=== PATIENT | male | born 1980 | race Two or more races ===

== ENCOUNTER 2022-01-29 22:00 | Emergency (ER) | payer OTHER ==
[~2022-01-29] VITALS: Ht 177.8 cm; Wt 96.2 kg
--- NOTE | 2022-01-29 22:11 | NUR ---
BIBFRIEND C/O RIGHT EYE PAIN X 30 MIN
[2022-01-29] MEDS ORDERED: OXYC-128 PO (22:32)
--- NOTE | 2022-01-29 22:45 | NUR ---
RIGHT EYE FLUSH WITH TETRACAINE AND NS DONE
[2022-01-29] MEDS ORDERED: ERYT3.5O9 RIGHTEYE (22:59)
[2022-01-29] MEDS ORDERED: HYDROCODONE/APAP 5/325MG TABLET PO ONE (23:00)
[2022-01-29] MEDS ORDERED: HYDROCODONE/APAP 5/325MG TABLET ONE (23:05)
--- NOTE | 2022-01-29 23:07 | NUR ---
Patient discharged to home in stable condition. Written and verbal after care instructions given. Patient AND FRIEND verbalizes understanding of instruction.
[2022-01-29 23:10] VITALS: BP 135/85
== END 2022-01-29 23:07 | disposition home or self-care (01) ==
LOC: ER 22:09
DX: T54.2X1A Toxic effect of corrosive acids and acid-like substances, accidental (unintentional), initial encounter (principal); H57.11 Ocular pain, right eye; H57.89 Other specified disorders of eye and adnexa; I10 Essential (primary) hypertension; Z60.2 Problems related to living alone; Y92.89 Other specified places as the place of occurrence of the external cause